=== PATIENT | female | born 1980 | race Caucasian/White ===

== ENCOUNTER 2017-07-19 04:47 | Emergency (ER) | payer BC ==
[2017-07-19] MEDS ORDERED: Sodium Chloride 0.9% 1,000 ML IV ONE (04:56)
--- NOTE | 2017-07-19 04:56 | EDM.PDOC ---
<Guanaco Cao J - Last Filed: 07/19/17 04:54> ED HPI GENERAL MEDICAL PROBLEM - General Chief Complaint: Abdominal Pain Stated Complaint: LOWER ABDOMINAL PAIN Time Seen by Provider: 07/19/17 04:54 - History of Present Illness INITIAL COMMENTS - FREE TEXT/NARRATIVE: HISTORY AND PHYSICAL: History of present illness: Patient 36-year-old female with no significant past medical history presents with concern of acute right lower quadrant and right flank pain patient states this started approximately an hour and half prior to arrival is without associated nausea vomiting and no vaginal discharge or irregular bleeding she denies history of urolithiasis she has had a partial hysterectomy Review of systems: As per history of present illness and below otherwise all systems reviewed and negative. Past medical history: As per history of present illness and as reviewed below otherwise noncontributory. Surgical history: As per history of present illness and as reviewed below otherwise noncontributory. Social history: No reported history of drug or alcohol abuse. Family history: As per history of present illness and as reviewed below otherwise noncontributory. Physical exam: HEENT: Atraumatic, normocephalic, pupils reactive, negative for conjunctival pallor or scleral icterus, mucous membranes moist, throat clear, neck supple, nontender, trachea midline. Lungs: Clear to auscultation, breath sounds equal bilaterally, chest nontender. Heart: S1S2, regular, negative for clicks, rubs, or JVD. Abdomen: Soft, nondistended, tenderness noted in right lower quadrant this is somewhat localized there is mild guarding no rebound. Negative for masses or hepatosplenomegaly. Negative for costovertebral tenderness. Pelvis: Stable nontender. Genitourinary: Deferred. Rectal: Deferred. Extremities: Atraumatic, negative for cords or calf pain. Neurovascular unremarkable. Neuro: Awake, alert, oriented. Cranial nerves II through XII unremarkable. Cerebellum unremarkable. Motor and sensory unremarkable throughout. Exam nonfocal. Diagnostics: CBC CMP UA CT abdomen and pelvis Therapeutics: Normal saline 1 L bolus Toradol 30 mg IV Zofran 4 mg IV Impression: #1 acute right-sided/flank pain Definitive disposition and diagnosis as appropriate pending reevaluation and review of above. Right Lower Abdomen Pain Score (Numeric/FACES): 8 - Related Data Allergies Allergy/AdvReac Type Severity Reaction Status Date / Time morphine Allergy Vomiting Verified 07/19/17 04:53 Penicillins Allergy Nausea and Verified 02/24/14 00:57 Vomiting Sulfa (Sulfonamide Allergy Vomiting Verified 07/19/17 04:53 Antibiotics) Home Meds: Home Meds . [No Known Home Meds] 02/24/14 [History] Social & Family History - Tobacco Use Second Hand Smoke Exposure: Yes - Recreational Drug Use Recreational Drug Use: No ED ROS GENERAL - Review of Systems Review Of Systems: ROS reveals no pertinent complaints other than HPI. ED EXAM, GENERAL - Physical Exam Exam: See Below (See dictation) Course - Vital Signs Last Recorded V/S: Last Vital Signs Temp 35.9 C 07/19/17 06:18 Pulse 54 L 07/19/17 06:18 Resp 17 07/19/17 06:18 BP 111/70 07/19/17 06:18 Pulse Ox 100 07/19/17 06:18 - Orders/Labs/Meds Orders: Active Orders 24 hr Category Date Time Status Patient Status [ADT] Stat ADT 07/19/17 07:14 Ordered Abdomen Pelvis wo Cont [CT] Stat Exams 07/19/17 04:56 Taken Bisacodyl [Dulcolax] Med 07/19/17 07:14 Once 10 mg RECTAL ONETIME ONE Lactated Ringers @ 125 MLS/HR(1,000ml) Med 07/19/17 07:15 Ordered Lactated Ringers [Ringers, Lactated] 1,000 ml IV ASDIRECTED Labs: Laboratory Tests 07/19/17 07/19/17 07/19/17 Range/Units 04:55 04:55 05:32 WBC 6.95 (4.0-11.0) K/uL RBC 4.55 (4.30-5.90) M/uL Hgb 13.6 (12.0-16.0) g/dL Hct 40.8 (36.0-46.0) % MCV 89.7 (80.0-98.0) fL MCH 29.9 (27.0-32.0) pg MCHC 33.3 (31.0-37.0) g/dL RDW Std Deviation 46.2 (28.0-62.0) fl RDW Coeff of Nidia 14 (11.0-15.0) % Plt Count 203 (150-400) K/uL MPV 11.00 (7.40-12.00) fL Neut % (Auto) 57.5 (48.0-80.0) % Lymph % (Auto) 30.2 (16.0-40.0) % [place] % (Auto) 10.1 (0.0-15.0) % Eos % (Auto) 1.6 (0.0-7.0) % Baso % (Auto) 0.6 (0.0-1.5) % Neut # (Auto) 4.0 (1.4-5.7) K/uL Lymph # (Auto) 2.1 (0.6-2.4) K/uL [place] # (Auto) 0.7 (0.0-0.8) K/uL Eos # (Auto) 0.1 (0.0-0.7) K/uL Baso # (Auto) 0.0 (0.0-0.1) K/uL Nucleated RBC % 0.0 /100WBC Nucleated RBCs # 0 K/uL Sodium 139 (136-146) mmol/L Potassium 3.7 (3.5-5.1) mmol/L Chloride 107 (98-110) mmol/L Carbon Dioxide 25 (21-31) mmol/L BUN 13 (6.0-23.0) mg/dL Creatinine 0.8 (0.6-1.5) mg/dL Est Cr Clr Drug Dosing 92.72 mL/min Estimated GFR (MDRD) > 60.0 ml/min Glucose 93 (60-110) mg/dL Calcium 9.1 (8.8-10.8) mg/dL Total Bilirubin 0.4 (0.1-1.5) mg/dL AST 17 (5-40) IU/L ALT 13 (8-54) IU/L Alkaline Phosphatase 44 (40-150) Total Protein 7.0 (6.0-8.0) g/dL Albumin 4.0 (3.5-5.0) g/dL Globulin 3.0 (2.0-3.5) g/dL Albumin/Globulin Ratio 1.3 (1.3-2.8) Urine Color YELLOW Urine Appearance CLEAR Urine pH 6.0 (5.0-8.0) Ur Specific [place] <= 1.005 (1.001-1.035) Urine Protein NEGATIVE (NEGATIVE) mg/dL Urine Glucose (UA) NEGATIVE (NEGATIVE) mg/dL Urine Ketones NEGATIVE (NEGATIVE) mg/dL Urine Occult Blood NEGATIVE (NEGATIVE) Urine Nitrite NEGATIVE (NEGATIVE) Urine Bilirubin NEGATIVE (NEGATIVE) Urine Urobilinogen 0.2 (<2.0) EU/dL Ur Leukocyte Esterase NEGATIVE (NEGATIVE) Urine RBC 0-1 (0-2/HPF) Urine WBC NONE SEEN (0-5/HPF) Ur Epithelial Cells OCCASIONAL (NONE-FEW) Urine Bacteria FEW (NEGATIVE) Meds: Medications Discontinued Medications Generic Name Dose Route Start Last Admin Trade Name Russellq PRN Reason Stop Dose Admin Sodium Chloride 1,000 mls @ 999 mls/hr 07/19/17 04:56 07/19/17 05:01 Normal Saline IV 07/19/17 05:56 999 mls/hr .BOLUS ONE Administration Ketorolac Tromethamine 30 mg 07/19/17 04:57 07/19/17 05:01 Toradol IVPUSH 07/19/17 04:58 30 mg ONETIME ONE Administration Ondansetron HCl 4 mg 07/19/17 04:57 07/19/17 05:03 Zofran IVPUSH 07/19/17 04:58 4 mg ONETIME ONE Administration Departure - Departure Disposition: Refer to Observation Clinical Impression: Abdominal pain Qualifiers: Abdominal location: right lower quadrant Qualified Code(s): R10.31 - Right lower quadrant pain - Discharge Information Referrals: PCP,None [Primary Care Provider] - Forms: ED Department Discharge - My Orders Last 24 Hours: My Active Orders 07/19/17 07:14 Patient Status [ADT] Stat Bisacodyl [Dulcolax] 10 mg RECTAL ONETIME ONE 07/19/17 07:15 Lactated Ringers @ 125 MLS/HR(1,000ml) Lactated Ringers [Ringers, Lactated] 1, 000 ml IV ASDIRECTED - Assessment/Plan Last 24 Hours: My Active Orders 07/19/17 07:14 Patient Status [ADT] Stat Bisacodyl [Dulcolax] 10 mg RECTAL ONETIME ONE 07/19/17 07:15 Lactated Ringers @ 125 MLS/HR(1,000ml) Lactated Ringers [Ringers, Lactated] 1, 000 ml IV ASDIRECTED <Ramos,Hien A - Last Filed: 07/19/17 07:19> ED HPI GENERAL MEDICAL PROBLEM - History of Present Illness INITIAL COMMENTS - FREE TEXT/NARRATIVE: This is Dr. Ramos dictating an addendum note as I assumed care of this patient at [address] Zamarripa our surgeon was contacted by Dr. Cao and he is present in the emergency department at 7:03 AM. He has reviewed the CT scan and evaluated/examined the patient himself. He would like the patient to remain nothing by mouth and receive lactated Ringer's at 1 25 mL per hour and also received a Dulcolax suppository as he feels that there is a copious amount of stool on the CAT scan. He would like to observe the patient in the hospital and a bed has been arranged. The patient is aware of this care plan and is in agreement. Impression: Right-sided abdominal pain etiology unclear, constipation on CAT scan ED ROS GENERAL - Review of Systems Review Of Systems: ROS reveals no pertinent complaints other than HPI. Departure - Departure Time of Disposition: 07:18 Condition: Good
[2017-07-19] MEDS ORDERED: Ketorolac 30 MG/ML SDV IVPUSH ONE (04:57)
[2017-07-19] MEDS ORDERED: Ondansetron 4 MG/2 ML SDV IVPUSH ONE (04:57)
[2017-07-19 05:28] LABS: CHLORIDE,CL 107 mmol/L (98-110); SODIUM,NA 139 mmol/L (136-146)
[2017-07-19] MEDS ORDERED: Bisacodyl 10 MG Supp RECTAL ONE (07:14)
[2017-07-19] MEDS ORDERED: Lactated Ringers 1,000 ML IV SCH (07:15)
--- NOTE | 2017-07-19 07:28 | PCM.HP ---
H&P History of Present Illness - General Date of Service: 07/19/17 Admit Problem/Dx: Admission Diagnosis/Problem Admission Diagnosis/Problem Abdominal pain Source of Information: Patient History Limitations: Reports: No Limitations - History of Present Illness Initial Comments - Free Text/Narative: Patient states sudden onset of RLQ pain that awakened her from sleep. Hurts to stand up straight. No N/V, fever, chills or anorexia. Is hungry and would like to eat. Onset of Symptoms: Reports: Today Duration of Symptoms: Reports: Hour(s):, Constant, Improving (following one dose of Toradol) Location: Reports: Abdomen Quality: Reports: Pressure Improves with: Reports: Rest Worsens with: Reports: Movement Associated Symptoms: Denies: Diaphoresis, Fever/Chills, Loss of Appetite, Nausea /Vomiting, Shortness of Breath, Weakness Right Lower Abdomen Pain Score (Numeric/FACES): 5 - Related Data Allergies/Adverse Reactions: Allergies Allergy/AdvReac Type Severity Reaction Status Date / Time morphine Allergy Vomiting Verified 07/19/17 04:53 Penicillins Allergy Nausea and Verified 02/24/14 00:57 Vomiting Sulfa (Sulfonamide Allergy Vomiting Verified 07/19/17 04:53 Antibiotics) Home Medications: Home Meds . [No Known Home Meds] 02/24/14 [History] Past Medical History HEENT History: Reports: Impaired Vision Genitourinary History: Reports: UTI, Recurrent BARKER PEELER History: Reports: - Infectious Disease History Infectious Disease History: Reports: Chicken Pox - Past Surgical History HEENT Surgical History: Reports: Tonsillectomy Female Surgical History: Reports: Hysterectomy (for endometriosis) Social & Family History - Family History Family Medical History: Noncontributory - Tobacco Use Smoking Status *Q: Never Smoker Second Hand Smoke Exposure: No - Caffeine Use Caffeine Use: Reports: Tea Caffeine Use Comment: 1-2cups/day - Recreational Drug Use Recreational Drug Use: No H&P Review of Systems - Review of Systems: Review Of Systems: See Below General: Denies: Fever, Chills, Malaise, Weakness, Night Sweats, Diaphoresis, Decreased Appetite HEENT: Reports: No Symptoms Pulmonary: Denies: Shortness of Breath, Wheezing Cardiovascular: Denies: Chest Pain Gastrointestinal: Reports: Abdominal Pain. Denies: Anorexia, Constipation ( last BM 07/18, normal for her), Diarrhea, Decreased Appetite, Difficulty Swallowing, Distension Genitourinary: Reports: No Symptoms Musculoskeletal: Reports: No Symptoms Skin: Reports: No Symptoms Psychiatric: Reports: No Symptoms Neurological: Reports: No Symptoms Hematologic/Lymphatic: Reports: No Symptoms Immunologic: Reports: No Symptoms Exam - Exam Exam: See Below - Vital Signs Vital Signs: Last Vital Signs Temp 96.7 F 07/19/17 06:18 Pulse 54 L 07/19/17 06:18 Resp 17 07/19/17 06:18 BP 111/70 07/19/17 06:18 Pulse Ox 100 07/19/17 06:18 Weight: 160 lb - Exam General: Alert, Oriented, Cooperative, Mild Distress Neck: Supple Lungs: Clear to Auscultation, Normal Respiratory Effort Cardiovascular: Regular Rate, Regular Rhythm. No: Tachycardia GI/Abdominal Exam: Normal Bowel Sounds, Soft, No Distention, No Mass, Guarding, Tender. No: Rigid, Rebound (Female) Exam: Deferred Rectal (Female) Exam: Deferred Back Exam: Normal Inspection Extremities: Normal Inspection Skin: Warm, Dry, Intact Neuro Extensive - Mental Status: Alert, Oriented x3, Normal Mood/Affect Psychiatric: Alert, Normal Affect, Normal Mood - Patient Data Lab Results Last 24 hrs: Laboratory Results - last 24 hr 07/19/17 07/19/17 07/19/17 Range/Units 04:55 04:55 05:32 WBC 6.95 (4.0-11.0) K/uL RBC 4.55 (4.30-5.90) M/uL Hgb 13.6 (12.0-16.0) g/dL Hct 40.8 (36.0-46.0) % MCV 89.7 (80.0-98.0) fL MCH 29.9 (27.0-32.0) pg MCHC 33.3 (31.0-37.0) g/dL RDW Std Deviation 46.2 (28.0-62.0) fl RDW Coeff of Nidia 14 (11.0-15.0) % Plt Count 203 (150-400) K/uL MPV 11.00 (7.40-12.00) fL Neut % (Auto) 57.5 (48.0-80.0) % Lymph % (Auto) 30.2 (16.0-40.0) % [place] % (Auto) 10.1 (0.0-15.0) % Eos % (Auto) 1.6 (0.0-7.0) % Baso % (Auto) 0.6 (0.0-1.5) % Neut # (Auto) 4.0 (1.4-5.7) K/uL Lymph # (Auto) 2.1 (0.6-2.4) K/uL [place] # (Auto) 0.7 (0.0-0.8) K/uL Eos # (Auto) 0.1 (0.0-0.7) K/uL Baso # (Auto) 0.0 (0.0-0.1) K/uL Nucleated RBC % 0.0 /100WBC Nucleated RBCs # 0 K/uL Sodium 139 (136-146) mmol/L Potassium 3.7 (3.5-5.1) mmol/L Chloride 107 (98-110) mmol/L Carbon Dioxide 25 (21-31) mmol/L BUN 13 (6.0-23.0) mg/dL Creatinine 0.8 (0.6-1.5) mg/dL Est Cr Clr Drug Dosing 92.72 mL/min Estimated GFR (MDRD) > 60.0 ml/min Glucose 93 (60-110) mg/dL Calcium 9.1 (8.8-10.8) mg/dL Total Bilirubin 0.4 (0.1-1.5) mg/dL AST 17 (5-40) IU/L ALT 13 (8-54) IU/L Alkaline Phosphatase 44 (40-150) Total Protein 7.0 (6.0-8.0) g/dL Albumin 4.0 (3.5-5.0) g/dL Globulin 3.0 (2.0-3.5) g/dL Albumin/Globulin Ratio 1.3 (1.3-2.8) Urine Color YELLOW Urine Appearance CLEAR Urine pH 6.0 (5.0-8.0) Ur Specific [place] <= 1.005 (1.001-1.035) Urine Protein NEGATIVE (NEGATIVE) mg/dL Urine Glucose (UA) NEGATIVE (NEGATIVE) mg/dL Urine Ketones NEGATIVE (NEGATIVE) mg/dL Urine Occult Blood NEGATIVE (NEGATIVE) Urine Nitrite NEGATIVE (NEGATIVE) Urine Bilirubin NEGATIVE (NEGATIVE) Urine Urobilinogen 0.2 (<2.0) EU/dL Ur Leukocyte Esterase NEGATIVE (NEGATIVE) Urine RBC 0-1 (0-2/HPF) Urine WBC NONE SEEN (0-5/HPF) Ur Epithelial Cells OCCASIONAL (NONE-FEW) Urine Bacteria FEW (NEGATIVE) Result Diagrams: 07/19/17 04:55 07/19/17 04:55 Imaging Impressions Last 24 hrs: CT report shows no acute intra-abdominal process. Appendix not visualized. Appears to be a large amount of fecal material scattered throughout the entire length of the colon. *Q Meaningful Use (ADM) - VTE *Q VTE Criteria *Q: - Stroke *Q Stroke Criteria *Q: - AMI *Q AMI Criteria *Q: - Problem List (1) Right lower quadrant abdominal pain SNOMED Code(s): 020676171 ICD Code: R10.31 - RIGHT LOWER QUADRANT PAIN Status: Acute Current Visit : Yes Problem List Initiated/Reviewed/Updated: Yes Orders Last 24hrs: Active Orders 24 hr Category Date Time Status Patient Status [ADT] Stat ADT 07/19/17 07:14 Active Up ad [place] [RC] PER UNIT ROUTINE Care 07/19/17 07:21 Ordered Vital Signs [RC] PER UNIT ROUTINE Care 07/19/17 07:21 Ordered Nothing Per Oral Diet [DIET] Diet 07/19/17 Breakfast Ordered Abdomen Pelvis wo Cont [CT] Stat Exams 07/19/17 04:56 Taken Lactated Ringers [Ringers, Lactated] 1,000 ml Med 07/19/17 07:15 Active IV ASDIRECTED Resuscitation Status Routine Resus Stat 07/19/17 07:21 Ordered Medication Orders Lactated Ringer's (Ringers, Lactated) 1,000 mls @ 125 mls/hr IV ASDIRECTED HAYLEE Assessment/Plan Comment:: Right lower quadrant w/o N/V, fever, chills, anorexia. Recommend: Admit for observation, NPO, IV fluids and reassess later today. Hold on parenteral analgesics and antibiotics. ER staff called and said patient prefers to go home and try a suppository at home. I did recommend against this. Patient could be discharged by ER physician or sign out AMA.
[2017-07-19 07:53] VITALS: BP 101/60
--- NOTE | 2017-07-19 17:21 | CT ---
EXAM DATE: 07/19/17 PATIENT'S AGE: 36 Patient: MARILEE VALDOVINOS Facility: [place], [place] Site . Site : 1980 Study: CT Abdomen/Pelvis WO CONT [id number]/7/2017 5:25:33 AM Ordering Physician: Doctor Hughes Final Report: INDICATION: Right lower abdominal pain TECHNIQUE: CT abdomen and pelvis without contrast. COMPARISON: None FINDINGS: Lower chest: Unremarkable. Liver: Unremarkable. Spleen: Unremarkable. Pancreas: Unremarkable. Gallbladder and bile ducts: Unremarkable. Adrenal glands: Unremarkable. Kidneys: Unremarkable. No kidney or ureteral stones and no hydronephrosis. GI tract: Unremarkable. Appendix is not visualized. Vascular structures: Unremarkable. Lymph nodes: Unremarkable. Miscellaneous: Unremarkable. No free air or significant free fluid. Pelvic Organs: Unremarkable. Bones: Unremarkable for age. IMPRESSION: The appendix is not visualized. Remainder of the exam is unremarkable. Please note that all CT scans at this facility use dose modulation, iterative reconstruction, and/or weight-based dosing when appropriate to reduce radiation dose to as low as reasonably achievable. Dictated by Rosalinda Childress MD @ Jul 19 2017 5:50AM (Electronic Signature) Report Signed by Proxy. JARED
== END 2017-07-19 07:48 | disposition other institution (70) ==
LOC: MW.ED 04:47
DX: R10.31 Right lower quadrant pain (principal); Z88.5 Allergy status to narcotic agent; Z88.0 Allergy status to penicillin; Z88.2 Allergy status to sulfonamides
CPT/HCPCS: 74176; 80053; 81001; 85025; 96361; 96374; 96375; 99285; J1885; J2405; J7040; 99283

== ENCOUNTER 2024-12-31 17:36 | Emergency (ER) | payer BC ==
[2024-12-31] MEDS: Ibuprofen 600 MG Tab PO ONE (19:33)
[2024-12-31 19:47] VITALS: BP 122/72; PULSE 68
== END 2024-12-31 19:47 | disposition home or self-care (01) ==
LOC: MW.ED 17:36
DX: S93.402A Sprain of unspecified ligament of left ankle, initial encounter (principal); F17.210 Nicotine dependence, cigarettes, uncomplicated; Z90.710 Acquired absence of both cervix and uterus; Z88.0 Allergy status to penicillin; Z88.5 Allergy status to narcotic agent; Z88.2 Allergy status to sulfonamides; Z79.890 Hormone replacement therapy; Z79.899 Other long term (current) drug therapy; Z75.8 Other problems related to medical facilities and other health care; X50.1XXA Overexertion from prolonged static or awkward postures, initial encounter; Y93.01 Activity, walking, marching and hiking
CPT/HCPCS: 73590; 73610; 99283; A9270